=== PATIENT | female | born 1980 | race Caucasian/White ===

== ENCOUNTER → 2018-11-21 13:59 | Outpatient (CLI) | payer OTHER, SELFPAY ==
--- NOTE | 2018-11-21 14:01 | DI.RAD.S_ITS ---
PROCEDURE: XR CHEST 2V INDICATIONS: Cough TECHNIQUE: 2 views of the chest were acquired. COMPARISON: [facility], , CHEST 2 VIEW, 08/09/2010, 11:43. FINDINGS: Surgical changes and devices: None. Lungs and pleura: Lungs are clear. No pleural effusions or pneumothorax. Mediastinum: Mediastinal contours are normal. Heart size is normal. Bones and chest wall: No suspicious bony abnormalities. Soft tissues appear unremarkable. IMPRESSION: No acute cardiopulmonary pathology. Dictated by: Tomy Hodge M.D. on 11/21/2018 at 15:17 Approved by: Tomy Hodge M.D. on 11/21/2018 at 15:18
== END ==
PROVIDERS: PCP Family Medicine; Visit Provider Registered Nurse
DX: R05 Cough (principal)
CPT/HCPCS: 71046

== ENCOUNTER → 2018-12-06 08:13 | Outpatient (CLI) | payer OTHER, SELFPAY ==
[2018-12-06 09:50] LABS: Alanine Aminotransferase 39 IU/L (9-52); Albumin 4.4 g/dL (3.5-5.0); Albumin Globulin Ratio 1.5 (1.0-2.8); Alkaline Phosphatase 60 U/L (38-126); Aspartate Aminotransferase 32 IU/L (14-36); BUN Creatinine Ratio 12.5 (6-22); Bilirubin Total 0.2 mg/dL (0.2-1.3); Blood Urea Nitrogen 10 mg/dL (7-17); Calcium 9.4 mg/dL (8.4-10.2); Carbon Dioxide 24 mmol/L (22-32); Chloride 104 mmol/L (98-107); Cholesterol 153 mg/dL (140-199); Estimated Glomerular Filt Rate > 60.0 mL/min (>60); Glucose 90 mg/dL (70-100); HDL Cholesterol 56 mg/dL (40-60); HEMOLYSIS < 15 (0-50); LDL Cholesterol Calculated 75 mg/dL (<100); Potassium 4.3 mmol/L (3.4-5.1); Sodium 138 mmol/L (137-145); Total Protein 7.4 g/dL (6.3-8.2); Triglycerides 109 mg/dL (35-150)
[2018-12-06 10:24] LABS: Add Manual Diff / Slide Review NO; Basophils Absolute Auto 0 /uL (0-100); Basophils Percent Auto 0.6 % (0-2); Eosinophils Absolute Auto 100 /uL (0-450); Eosinophils Percent Auto 1.9 % (2-4); Hematocrit 41.5 % (36-46); Hemoglobin 14.2 g/dL (12.0-16.0); Lymphocytes Absolute Auto 1300 /uL (1100-4500); Lymphocytes Percent Auto 27.8 % (25-40); Mean Corpuscular HGB Conc 34.1 % (30-36); Mean Corpuscular Hemoglobin 30.5 PG (26-34); Mean Corpuscular Volume 89.3 fL (80-100); Monocytes Absolute Auto 400 /uL (0-900); Monocytes Percent Auto 8.6 % (3-14); Neutrophils Absolute Auto 2900 /uL (1500-7000); Neutrophils Percent Auto 61.1 % (50-75); Platelet Count 304 X10^3/uL (150-400); Red Blood Cell Count 4.65 X10^6/uL (4.0-5.2); Red Cell Distribution Width 13.9 % (11.6-14.8); White Blood Cell Count 4.8 X10^3/uL (4.5-11.0)
[2018-12-06 11:26] LABS: TSH w/ Reflex to FT4 2.68 uIU/mL (0.47-4.68)
== END ==
PROVIDERS: PCP Family Medicine; Visit Provider Family Medicine
DX: E78.2 Mixed hyperlipidemia (principal); Z13.6 Encounter for screening for cardiovascular disorders
CPT/HCPCS: 36415; 80053; 80061; 84443; 85025

== ENCOUNTER → 2019-04-14 11:41 | Outpatient (CLI) | payer OTHER, SELFPAY ==
[2019-04-14 14:13] LABS: HCG Quantitative /Beta subunit < 2.39 mIU/mL; Prolactin 4.9 ng/mL (3.0-18.6)
[2019-04-14 14:23] LABS: TSH w/ Reflex to FT4 1.75 uIU/mL (0.47-4.68)
[2019-04-14 15:16] LABS: Follicle Stimulating Hormone 3.96 mIU/mL
== END ==
PROVIDERS: PCP Family Medicine; Visit Provider Registered Nurse
DX: N92.6 Irregular menstruation, unspecified (principal)
CPT/HCPCS: 36415; 83001; 84146; 84443; 84702

== ENCOUNTER 2019-05-25 12:45 | Day surgery (SDC) | payer OTHER, SELFPAY ==
[2019-05-25 13:12] VITALS: BP 115/77; PULSE 94; RESP 16; TEMP 36; O2SAT 96; BMI 33.6
[2019-05-25] MEDS: SCOPOLAMINE 1 PATCH TOP (13:24)
[2019-05-25] MEDS: SODIUM CHLORIDE 0.9% 1,000 ML 200 ML IV (13:24)
--- NOTE | 2019-05-25 14:05 | PM.HP.1 ---
History of Present Illness History of Present Illness Date Patient Seen: 05/25/19 Time Patient Seen: 14:05 Chief complaint: [id number] Narrative: 38-year-old white female patient here for ease screening colonoscopy is asymptomatic only prior surgery was laparoscopy for a ovarian cystectomy years ago. Patient History Surgical History History of third molar tooth extraction Status post bunionectomy (08/15/17) Status post bunionectomy Status post laparoscopy Family History (Updated 11/25/14 @ 00:00 by Conversion Provider) Brother Alcoholism Depression Father Metastatic cancer to liver Metastatic cancer to brain Alcoholism Smoker Grandfather Stroke Brain aneurysm Grandmother Age: 89 Cervical cancer Skin carcinoma Keratoacanthoma Squamous cell skin cancer Mother Age: 67 IBS (irritable bowel syndrome) Anal cancer Osteopenia IC (interstitial cystitis) Grandfather Cancer Grandmother Diabetes mellitus Obesity Heart disease Hypertension High cholesterol Mental health problem Bipolar 1 disorder Hypomania Cardiomyopathy Congestive heart failure Chronic anemia Osteoporosis Social History household members: spouse Smoking Status: Former smoker alcohol intake: current substance use type: does not use Family & Social History Family History Brother Alcoholism Depression Father Metastatic cancer to liver Metastatic cancer to brain Alcoholism Smoker Grandfather Stroke Brain aneurysm Grandmother Age: 89 Cervical cancer Skin carcinoma Keratoacanthoma Squamous cell skin cancer Mother Age: 67 IBS (irritable bowel syndrome) Anal cancer Osteopenia IC (interstitial cystitis) Grandfather Cancer Grandmother Diabetes mellitus Obesity Heart disease Hypertension High cholesterol Mental health problem Bipolar 1 disorder Hypomania Cardiomyopathy Congestive heart failure Chronic anemia Osteoporosis Social History: household members spouse Tobacco & Substance use: Smoking Status Former smoker alcohol intake current Meds Home Medications and Allergies Home Medications Medication Instructions Recorded Confirmed Type sertraline [Zoloft] 100 mg PO QDAY #90 tab 09/01/18 04/14/19 Rx norethindrone-ethinyl estradiol 1 tab PO QDAY #84 tab 12/22/18 04/14/19 Rx 0.5 mg-35 mcg tablet fexofenadine 60 mg tablet 60 mg PO BID 04/14/19 04/14/19 History Allergies Allergy/AdvReac Type Severity Reaction Status Date / Time No Known Drug Allergies Allergy Verified 04/14/19 10:54 Review of Systems Review of Systems ROS Unobtainable: All systems reviewed & are unremarkable except as noted in HPI and below Exam Vital Signs (past 8 hours): - 05/25/19 13:12 Temperature 96.8 F L Pulse Rate 94 H Respiratory Rate 16 Blood Pressure 115/77 Pulse Oximetry 96 Oxygen Delivery Method Room Air Narrative Exam Narrative: Patient is alert and oriented with no complaints Lungs are clear with no rales or wheezes Heart regular rhythm no murmur Abdomen soft no organomegaly no tenderness no masses Rectal will be done at colonoscopy Assessment & Plan Assessment & Plan narrative: 38-year-old asymptomatic female here for her 1st screening colonoscopy she has no unanswered questions
[2019-05-25] MEDS: fentaNYL 250 MCG/5 ML INJ IV (14:31)
[2019-05-25] MEDS: MIDAZOLAM 5 MG/5 ML VIAL IV (14:31)
--- NOTE | 2019-05-25 14:33 | PM.OP.ENDO ---
Operative Date/Time/Diagnoses Date of procedure: 05/25/19 Time of procedure: 14:33 Pre-op diagnosis: Screening colonoscopy Post-op diagnosis: same Procedure & Clinicians Study performed: Colonoscopy to the cecum Same procedure as scheduled: Yes Surgeon: Jamey Cui Procedure Notes SCOAP/Timeout: This was done Procedure in detail: The patient was properly identified during surgical pause she was given a total of 5 mg of Versed and 200 micro g fentanyl which was very well tolerated and she remained comfortable throughout the procedure. The flexible fiberoptic colonoscope inserted transanally to the cecum. Patient is a normal colonoscopy. No tumors no polyps no ulcerations. No bleeding. No diverticulosis. Scope withdrawal time: 10 Sedation minutes: 20 Impression: Normal colonoscopy Post-procedure Recommendations: Colonscopy in 5 years Disposition: PACU
[2019-05-25 14:38] VITALS: BP 141/66; PULSE 85; RESP 24; TEMP 36.4; O2SAT 95
[2019-05-25 14:43] VITALS: BP 100/63; PULSE 94; RESP 14; O2SAT 95
[2019-05-25 14:46] VITALS: BP 103/70; PULSE 75; RESP 15; O2SAT 95
== END 2019-05-25 15:00 | disposition home or self-care (01) ==
PROVIDERS: Family Provider Family Medicine; PCP Family Medicine; Visit Provider Surgery
PROC: 0DJD8ZZ Inspection of Lower Intestinal Tract, Via Natural or Artificial Opening Endoscopic (ICD-10-PCS; CPT 45378; principal; 2019-05-25 14:30)
DX: Z12.11 Encounter for screening for malignant neoplasm of colon (principal)
CPT/HCPCS: 45378; 99152; J2250; J3010

== ENCOUNTER → 2020-02-22 08:00 | Outpatient (CLI) | payer OTHER, SELFPAY ==
[2020-02-22 09:29] LABS: Add Manual Diff / Slide Review NO; Basophils Absolute Auto 100 /uL (0-100); Basophils Percent Auto 1.1 % (0-2); Eosinophils Absolute Auto 100 /uL (0-450); Eosinophils Percent Auto 1.1 % (2-4); Hematocrit 41.9 % (36-46); Hemoglobin 14.3 g/dL (12.0-16.0); Lymphocytes Absolute Auto 1500 /uL (1100-4500); Lymphocytes Percent Auto 23.7 % (25-40); Mean Corpuscular HGB Conc 34.2 % (30-36); Mean Corpuscular Volume 87.7 fL (80-100); Monocytes Absolute Auto 500 /uL (0-900); Monocytes Percent Auto 7.2 % (3-14); Neutrophils Absolute Auto 4200 /uL (1500-7000); Neutrophils Percent Auto 66.9 % (50-75); Platelet Count 353 X10^3/uL (150-400); Red Blood Cell Count 4.77 X10^6/uL (4.0-5.2); Red Cell Distribution Width 14.1 % (11.6-14.8); White Blood Cell Count 6.3 X10^3/uL (4.5-11.0)
[2020-02-22 10:49] LABS: Alanine Aminotransferase 25 IU/L (<35); Albumin 4.4 g/dL (3.5-5.0); Albumin Globulin Ratio 1.4 (1.0-2.8); Alkaline Phosphatase 81 U/L (38-126); Aspartate Aminotransferase 31 IU/L (14-36); BUN Creatinine Ratio 17.9 (6-22); Bilirubin Total 0.6 mg/dL (0.2-1.3); Blood Urea Nitrogen 15 mg/dL (7-17); Calcium 9.8 mg/dL (8.4-10.2); Carbon Dioxide 24 mmol/L (22-32); Chloride 103 mmol/L (98-107); Cholesterol 239 mg/dL (140-199); Estimated Glomerular Filt Rate > 60.0 mL/min (>60); Globulin 3.1 g/dL (1.7-4.1); Glucose 86 mg/dL (70-100); HDL Cholesterol 95 mg/dL (40-60); HEMOLYSIS < 15 (0-50); LDL Cholesterol Calculated 126 mg/dL (<100); Potassium 4.4 mmol/L (3.4-5.1); Sodium 136 mmol/L (137-145); Total Protein 7.5 g/dL (6.3-8.2); Triglycerides 90 mg/dL (35-150)
[2020-02-22 11:10] LABS: TSH w/ Reflex to FT4 1.31 uIU/mL (0.47-4.68)
== END ==
PROVIDERS: Family Provider Family Medicine; PCP Family Medicine; Referring Provider Family Medicine; Visit Provider Family Medicine
DX: Z00.00 Encounter for general adult medical examination without abnormal findings (principal); E78.2 Mixed hyperlipidemia; Z13.6 Encounter for screening for cardiovascular disorders
CPT/HCPCS: 36415; 80053; 80061; 84443; 85025

== ENCOUNTER → 2020-03-16 11:28 | Outpatient (CLI) | payer OTHER, SELFPAY ==
--- NOTE | 2020-03-16 11:29 | DI.MG.S_ITS ---
BILATERAL DIGITAL SCREENING MAMMOGRAM 3D/2D WITH CAD: 03/16/2020 CLINICAL: Routine screening. Baseline exam. Family history of breast cancer. No prior exams were available for comparison. The tissue of both breasts is predominantly fatty. Current study was also evaluated with a Computer Aided Detection (CAD) system. No significant masses, calcifications, or other findings are seen in either breast. IMPRESSION: NEGATIVE There is no mammographic evidence of malignancy. A 1 year screening mammogram is recommended. This exam was interpreted at Station ID: [id number]. NOTE: For mammograms, a report in lay terms will be sent to the patient. Approximately 15% of breast malignancies will not be visualized mammographically. In the management of a palpable breast mass, a negative mammogram must not discourage biopsy of a clinically suspicious lesion. Electronically Signed By: Narendra Contreras M.D., jr/micaela:03/16/2020 11:52:00 letter sent: Normal Exam ACR BI-RADS Category 1: Negative [id number]
== END ==
PROVIDERS: Family Provider Family Medicine; PCP Family Medicine; Referring Provider Family Medicine; Visit Provider Family Medicine
DX: Z12.31 Encounter for screening mammogram for malignant neoplasm of breast (principal); Z80.3 Family history of malignant neoplasm of breast
CPT/HCPCS: 77063; 77067

== ENCOUNTER → 2021-02-21 07:07 | Outpatient (CLI) | payer OTHER, SELFPAY ==
[2021-02-21 08:13] LABS: Add Manual Diff / Slide Review NO; Basophils Absolute Auto 100 /uL (0-100); Eosinophils Absolute Auto 200 /uL (0-450); Eosinophils Percent Auto 2.9 % (2-4); Hematocrit 39.3 % (36-46); Hemoglobin 13.3 g/dL (12.0-16.0); Lymphocytes Absolute Auto 1600 /uL (1100-4500); Lymphocytes Percent Auto 29.1 % (25-40); Mean Corpuscular HGB Conc 33.9 % (30-36); Mean Corpuscular Hemoglobin 29.9 PG (26-34); Mean Corpuscular Volume 88.4 fL (80-100); Monocytes Absolute Auto 500 /uL (0-900); Monocytes Percent Auto 8.5 % (3-14); Neutrophils Absolute Auto 3200 /uL (1500-7000); Neutrophils Percent Auto 58.5 % (50-75); Platelet Count 325 X10^3/uL (150-400); Red Blood Cell Count 4.44 X10^6/uL (4.0-5.2); Red Cell Distribution Width 13.9 % (11.6-14.8); White Blood Cell Count 5.5 X10^3/uL (4.5-11.0)
[2021-02-21 08:37] LABS: Alanine Aminotransferase 23 IU/L (<35); Albumin Globulin Ratio 1.4 (1.0-2.8); Alkaline Phosphatase 52 U/L (38-126); Aspartate Aminotransferase 26 IU/L (14-36); BUN Creatinine Ratio 17.6 (6-22); Bilirubin Total 0.4 mg/dL (0.2-1.3); Blood Urea Nitrogen 15 mg/dL (7-17); Calcium 8.9 mg/dL (8.4-10.2); Carbon Dioxide 26 mmol/L (22-32); Chloride 105 mmol/L (98-107); Cholesterol 199 mg/dL (140-199); Estimated Glomerular Filt Rate > 60.0 mL/min (>60); Globulin 2.9 g/dL (1.7-4.1); Glucose 92 mg/dL (70-100); HDL Cholesterol 94 mg/dL (40-60); HEMOLYSIS < 15 (0-50); LDL Cholesterol Calculated 87 mg/dL (<100); Sodium 138 mmol/L (137-145); Total Protein 6.9 g/dL (6.3-8.2); Triglycerides 90 mg/dL (35-150)
[2021-02-21 09:05] LABS: TSH w/ Reflex to FT4 1.68 uIU/mL (0.47-4.68)
== END ==
PROVIDERS: Family Provider Family Medicine; PCP Family Medicine; Referring Provider Family Medicine; Visit Provider Family Medicine
DX: E78.2 Mixed hyperlipidemia (principal)
CPT/HCPCS: 36415; 80053; 80061; 84443; 85025

== ENCOUNTER → 2021-03-24 07:58 | Outpatient (CLI) | payer OTHER, SELFPAY ==
--- NOTE | 2021-03-24 | DI.MG.S_ITS ---
BILATERAL DIGITAL SCREENING MAMMOGRAM 3D/2D WITH CAD: 03/24/2021 CLINICAL: Routine screening. Comparison is made to exam dated: 03/16/2020 [facility]. There are scattered fibroglandular elements in both breasts. Current study was also evaluated with a Computer Aided Detection (CAD) system. No significant masses, calcifications, or other findings are seen in either breast. There has been no significant interval change. IMPRESSION: NEGATIVE There is no mammographic evidence of malignancy. A 1 year screening mammogram is recommended. This exam was interpreted at Station ID: [id number]. NOTE: For mammograms, a report in lay terms will be sent to the patient. Approximately 15% of breast malignancies will not be visualized mammographically. In the management of a palpable breast mass, a negative mammogram must not discourage biopsy of a clinically suspicious lesion. Electronically Signed By: Pj castellaon/micaela:03/24/2021 08:23:54 letter sent: Normal Exam ACR BI-RADS Category 1: Negative [id number]
== END ==
PROVIDERS: Family Provider Family Medicine; PCP Family Medicine; Referring Provider Family Medicine; Visit Provider Family Medicine
DX: Z12.31 Encounter for screening mammogram for malignant neoplasm of breast (principal)
CPT/HCPCS: 77063; 77067

== ENCOUNTER → 2022-03-26 12:41 | Outpatient (CLI) | payer OTHER, SELFPAY ==
--- NOTE | 2022-03-26 | DI.MG.S_ITS ---
BILATERAL DIGITAL SCREENING MAMMOGRAM 3D/2D WITH CAD: 03/26/2022 CLINICAL: Routine screening. Family history of breast cancer. Comparison is made to exams dated: 03/24/2021 mammogram and 03/16/2020 mammogram - [facility]. There are scattered fibroglandular elements in both breasts. Current study was also evaluated with a Computer Aided Detection (CAD) system. No significant masses, calcifications, or other findings are seen in either breast. There has been no significant interval change. IMPRESSION: NEGATIVE There is no mammographic evidence of malignancy. A 1 year screening mammogram is recommended. Based on the Tyrer Cuzick model (a risk assessment model) the patient's lifetime risk is 13.2% and her 10 year risk is 2.2%. According to the ACR, ACS, and NCCN guidelines, an annual breast MRI exam along with mammogram is recommended if the patient's lifetime risk is 20% or greater. This exam was interpreted at Station ID: [id number]. NOTE: For mammograms, a report in lay terms will be sent to the patient. Approximately 15% of breast malignancies will not be visualized mammographically. In the management of a palpable breast mass, a negative mammogram must not discourage biopsy of a clinically suspicious lesion. Electronically Signed By: Narendra Contreras M.D., jr/micaela:03/26/2022 14:40:02 letter sent: Normal Exam ACR BI-RADS Category 1: Negative 3341F
== END ==
PROVIDERS: Family Provider Family Medicine; PCP Family Medicine; Referring Provider Family Medicine; Visit Provider Family Medicine
DX: Z12.31 Encounter for screening mammogram for malignant neoplasm of breast (principal); Z80.3 Family history of malignant neoplasm of breast
CPT/HCPCS: 77063; 77067

== ENCOUNTER → 2022-04-06 06:45 | Outpatient (CLI) | payer OTHER, SELFPAY ==
[2022-04-06 08:15] LABS: Add Manual Diff / Slide Review NO; Basophils Absolute Auto 0 /uL (0-100); Basophils Percent Auto 0.3 % (0-2); Eosinophils Absolute Auto 100 /uL (0-450); Eosinophils Percent Auto 1.2 % (2-4); Hematocrit 40.6 % (36-46); Lymphocytes Absolute Auto 1500 /uL (1100-4500); Mean Corpuscular HGB Conc 34.5 % (30-36); Mean Corpuscular Hemoglobin 30.2 PG (26-34); Mean Corpuscular Volume 87.5 fL (80-100); Monocytes Absolute Auto 400 /uL (0-900); Neutrophils Absolute Auto 3900 /uL (1500-7000); Neutrophils Percent Auto 65.5 % (50-75); Platelet Count 264 X10^3/uL (150-400); Red Blood Cell Count 4.64 X10^6/uL (4.0-5.2); Red Cell Distribution Width 13.6 % (11.6-14.8); White Blood Cell Count 5.9 X10^3/uL (4.5-11.0)
[2022-04-06 08:35] LABS: Alanine Aminotransferase 32 IU/L (<35); Albumin Globulin Ratio 1.5 (1.0-2.8); Alkaline Phosphatase 58 U/L (38-126); Aspartate Aminotransferase 28 IU/L (14-36); BUN Creatinine Ratio 10.2 (6-22); Bilirubin Total 0.5 mg/dL (0.2-1.3); Blood Urea Nitrogen 9 mg/dL (7-17); Calcium 9.1 mg/dL (8.4-10.2); Carbon Dioxide 24 mmol/L (22-32); Chloride 103 mmol/L (98-107); Cholesterol 158 mg/dL (140-199); Estimated Glomerular Filt Rate > 60 mL/min (>60); Globulin 2.6 g/dL (1.7-4.1); Glucose 87 mg/dL (70-100); HDL Cholesterol 59 mg/dL (40-60); HEMOLYSIS < 15 (0-50); LDL Cholesterol Calculated 80 mg/dL (<100); Potassium 4.1 mmol/L (3.4-5.1); Sodium 137 mmol/L (137-145); Total Protein 6.6 g/dL (6.3-8.2); Triglycerides 94 mg/dL (35-150)
[2022-04-06 09:04] LABS: TSH w/ Reflex to FT4 1.89 uIU/mL (0.47-4.68)
== END ==
PROVIDERS: Family Provider Family Medicine; PCP Family Medicine; Referring Provider Family Medicine; Visit Provider Family Medicine
DX: E78.2 Mixed hyperlipidemia (principal)
CPT/HCPCS: 36415; 80053; 80061; 84443; 85025

== ENCOUNTER 2022-06-13 18:13 | Emergency (ER) | payer OTHER, SELFPAY ==
[2022-06-13] VITALS (14 sets, daily range): BP systolic 107–128; BP diastolic 55–78; PULSE 90–111; RESP 20; TEMP 36.8–38.8; O2SAT 94–99
[2022-06-13 19:44] LABS: Influenza A - CEPHEID Flu A NEGATIVE (NEGATIVE); Influenza B - CEPHEID Flu B NEGATIVE (NEGATIVE); Respiratory Syncytial Virus Negative (Negative)
[2022-06-13 19:46] LABS: COVID-19 CEPHEID 4-PLEX PCR POSITIVE (Negative)
--- NOTE | 2022-06-13 21:12 | ED.GENADULT ---
HPI - General Adult General Chief complaint: Fever Stated complaint: Fever of 103, Exposed to covid, but test - Time Seen by Provider: 06/13/22 21:04 Source: patient Mode of arrival: Ambulatory History of Present Illness HPI narrative: Patient is COVID vaccinated. However had exposure to a friend this past Saturday had COVID. She started started with fever body aches and now today has nausea and vomiting. No cough congestion, no shortness of breath. Has body aches and headache and neck pain. Denies , does not want a test. Has a company tanker truck driver. Related Data Home Medications Medication Instructions Recorded Confirmed fexofenadine 60 mg tablet (Taylor 60 mg PO BID 04/14/19 02/28/21 Allergy) Previous Rx's Medication Instructions Recorded norethindrone 0.5 mg-ethinyl 1 tab PO QDAY #84 tabs 04/09/22 estradiol 35 mcg tablet (Necon) sertraline 100 mg tablet See Rx Instructions .Route 04/09/22 .COMPLEX #90 tabs Allergies Allergy/AdvReac Type Severity Reaction Status Date / Time No Known Drug Allergies Allergy Verified 04/09/22 08:36 Review of Systems Review of Systems Narrative: GENERAL: Positive chills, fatigue, malaise, fever, sweats. HEENT: Denies sinus pain, ear pain, sore throat RESPIRATORY: Denies dyspnea, cough CARDIOVASCULAR: Denies chest pain, palpitations GASTROINTESTINAL: Positive nausea, vomiting, negative diarrhea and abdominal pain : Denies dysuria, frequency, hematuria MUSCULOSKELETAL: Positive muscle or bony pain SKIN: Denies rash, skin lesions NEUROLOGIC: Denies weakness, numbness ROS Unobtainable: All systems reviewed & are unremarkable except as noted in HPI and below Patient History Medical History Low back pain Surgical History Status post bunionectomy (08/15/17) Status post bunionectomy Status post laparoscopy Family History Brother Alcoholism Depression Father Metastatic cancer to liver Metastatic cancer to brain Alcoholism Smoker Grandfather Stroke Brain aneurysm Grandmother Age: 92 Cervical cancer Skin carcinoma Keratoacanthoma Squamous cell skin cancer Mother Age: 70 IBS (irritable bowel syndrome) Anal cancer Osteopenia IC (interstitial cystitis) Grandfather Cancer Grandmother Diabetes mellitus Obesity Heart disease Hypertension High cholesterol Mental health problem Bipolar 1 disorder Hypomania Cardiomyopathy Congestive heart failure Chronic anemia Osteoporosis Social History marital status: household members: spouse Smoking Status: Former smoker alcohol intake: current substance use type: does not use Smoking Status: Former smoker Exam Narrative Exam Narrative: GENERAL: in no distress, not toxic not dyspneic HEAD: Normocephalic. EYES: Pupils equal round No scleral icterus. No photophobia ENT: Mucous membranes moist. NECK: Trachea midline. Full active range of motion no meningeal signs CARDIOVASCULAR: Regular rate and rhythm without murmurs RESPIRATORY: Clear to auscultation. Breath sounds equal bilaterally. No wheezes, rales, or rhonchi. Speaking full sentences GASTROINTESTINAL: Abdomen soft, non-tender EXTREMITIES: No gross deformities. BACK: No flank tenderness. NEURO: AOx4. SKIN: Warm and dry PSYCH: Not anxious, is cooperative Initial Vital Signs Initial Vital Signs: Vital Signs Temperature 99.8 F H 06/13/22 18:27 Pulse Rate 111 H 06/13/22 18:27 Respiratory Rate 20 06/13/22 18:27 Blood Pressure 128/78 06/13/22 18:27 Pulse Oximetry 99 06/13/22 18:27 Oxygen Delivery Method 06/13/22 18:27 Course Course Course Narrative: No new issues during course of stay Orders Ordered: Discontinued Medications Acetaminophen (Acetaminophen 325 Mg Tablet) 975 mg PO NOW ONE Stop: 06/13/22 23:34 Last Admin: 06/13/22 23:36 Dose: Not Given Documented By: BARRY Diphenhydramine HCl (Diphenhydramine 50 Mg/Ml Vial) 12.5 mg IV NOW ONE Stop: 06/13/22 21:11 Last Admin: 06/13/22 21:33 Dose: 12.5 mg Documented By: BARRY Sodium Chloride (Normal Saline 0.9%) 1,000 mls @ 1,000 mls/hr IV BOLUS ONE Stop: 06/13/22 22:09 Last Infusion: 06/13/22 22:51 Dose: 0 mls/hr Documented By: Admin: 06/13/22 21:32 Dose: 1,000 mls/hr Documented By: BARRY Ketorolac Tromethamine (Ketorolac 30 Mg/Ml Vial) 15 mg IV NOW ONE Stop: 06/13/22 21:11 Last Admin: 06/13/22 21:32 Dose: 15 mg Documented By: BARRY Metoclopramide HCl (Metoclopramide 10 Mg/2 Ml Inj) 10 mg IV NOW ONE Stop: 06/13/22 21:11 Last Admin: 06/13/22 21:34 Dose: 10 mg Documented By: BARRY Reevaluation(s) Reevaluation #1: Reviewed results with patient, as well exam. Clear lung sounds. No x-ray indicated at this time. Clear lung sounds no complaints of cough or dyspnea. No blood work at this time. Vital signs otherwise reassuring. Not toxic Time: 21:15 Reevaluation #2: Patient feeling much better. She is smiling. Symptom-free from headache and neck pain. Body aches have improved as well. She desires discharge home. Return precautions reviewed with her. She has a company tanker truck driver. Time: 23:32 Vital Signs Vital signs: Vital Signs - 8 hr 06/13/22 21:45 06/13/22 21:30 06/13/22 21:30 Temperature 102 F H Pulse Rate 101 H Blood Pressure 115/58 L Pulse Oximetry 95 06/13/22 22:00 06/13/22 22:00 06/13/22 22:30 Temperature Pulse Rate 94 H Blood Pressure 118/62 118/62 Pulse Oximetry 96 06/13/22 22:30 06/13/22 23:00 06/13/22 23:00 Temperature Pulse Rate 91 H 90 Blood Pressure 115/57 L Pulse Oximetry 94 94 06/13/22 23:30 06/13/22 23:36 Temperature 98.2 F Pulse Rate 93 H Blood Pressure Pulse Oximetry 96 Medical Decision Making Differential Diagnosis Differential Diagnosis: COVID infection Lab Data Labs: Lab Results 06/13/22 Range/Units 18:47 SARS-CoV-2 (PCR) Positive H (Negative) Influenza A (RT-PCR) Flu a negative (NEGATIVE) Influenza B (RT-PCR) Flu b negative (NEGATIVE) RSV (PCR) Negative (Negative) MDM Narrative Medical decision making narrative: Appropriate for discharge home. No blood work or imaging indicated this time. No respiratory complaints. Feeling much better with conservative treatment. She has a company tanker truck driver. Return precautions reviewed with her. Not hypoxic or tachypneic. No respiratory complaints. Discharge Plan Departure Patient Disposition: Home Clinical Impression: COVID-19 Instructions: DI for Fever (Symptom) -- Adult, DI for COVID-19 (Suspected or Confirmed ) Activity Restrictions/Additional Instructions: See family doctor in a week for re-evaluation. You must quarantine 10 days from 1st day of your symptoms. Keep well hydrated. May continue ibuprofen or Tylenol for pain or fever. Return if worse if any questions or concerns Prescriptions: No Action sertraline 100 mg tablet See Rx Instructions .ROUTE .COMPLEX Qty: 90 3RF Dose Instruction: TAKE 1 TABLET BY MOUTH DAILY Rx Instructions: TAKE 1 TABLET BY MOUTH DAILY Necon 0.5/35 (28) 0.5-35 mg-mcg tablet 1 tab PO QDAY Qty: 84 4RF fexofenadine [Taylor Allergy] 60 mg tablet 60 mg PO BID Referrals: Narendra Hyatt MD [Primary Care Provider] - Visit Report Forms: Patient Portal/API
[2022-06-13] MEDS: KETOROLAC 30 MG/ML VIAL 15 MG IV (21:32)
[2022-06-13] MEDS: SODIUM CHLORIDE 0.9% 1,000 ML 1000 ML IV (21:32)
[2022-06-13] MEDS: diphenhydrAMINE 50 MG/ML VIAL 12.5 MG IV (21:33)
[2022-06-13] MEDS: METOCLOPRAMIDE 10 MG/2 ML INJ IV (21:34)
--- NOTE | 2022-06-13 21:47 | PC.NURSE ---
pt able to walk to the bathroom with minimal assistance did have to stop 1/2 way to catch her breath some dizziness noted
== END 2022-06-13 23:37 | disposition home or self-care (01) ==
PROVIDERS: Emergency Provider Emergency Medicine; Family Provider Family Medicine; PCP Family Medicine
DX: U07.1 COVID-19 (principal)
CPT/HCPCS: 0241U; 36415; 96361; 96374; 96375; 99284; J1200; J1885; J2765

== ENCOUNTER 2022-09-23 16:15 | Emergency (ER) | payer OTHER, SELFPAY ==
[2022-09-23 16:33] VITALS: BP 143/78; PULSE 90; RESP 28; TEMP 36.7; O2SAT 98; BMI 35.2
--- NOTE | 2022-09-23 16:35 | DI.RAD.S_ITS ---
PROCEDURE: XR CHEST 2V INDICATIONS: persistant cough TECHNIQUE: 2 views of the chest were acquired. COMPARISON: [facility], CR, XR CHEST 2V, 11/21/2018, 14:04. FINDINGS: Surgical changes and devices: None. Lungs and pleura: Lungs are clear. No pleural effusions or pneumothorax. Mediastinum: Mediastinal contours are normal. Heart size is normal. Bones and chest wall: No suspicious bony abnormalities. Soft tissues appear unremarkable. IMPRESSION: Unremarkable two view chest x-ray Approved by: Conrad Bunch M.D. on 09/23/2022 at 16:40
[2022-09-23] MEDS: BENZONATATE 100 MG CAPSULE PO (16:59)
[2022-09-23 17:21] LABS: Influenza A - CEPHEID Flu A NEGATIVE (NEGATIVE); Influenza B - CEPHEID Flu B NEGATIVE (NEGATIVE); Respiratory Syncytial Virus Negative (Negative)
--- NOTE | 2022-09-23 17:25 | ED_ITS ---
HPI - SOB/Dyspnea <Heather Walsh PA-C - Last Filed: 09/23/22 19:18> General Chief Complaint: Shortness of Breath/Dyspnea Stated Complaint: cough/trouble breathing covid/oct Time Seen by Provider: 09/23/22 16:55 Source: patient Mode of arrival: Ambulatory Limitations: no limitations History of Present Illness HPI Narrative: Patient is a 42-year-old female presenting for evaluation of cough symptoms and wheezing worsening over the last several days. She reports that she has felt short of breath and has had coughing since her bout of COVID last May. She notes that she was treated with antibiotics and albuterol inhaler in early July for bronchitis by her primary care provider. She says that she was diagnosed with flu over . She notes that she has not fully recovered since that time. She says that she feels out of breath, she has had wheezing with ocasional ear pain, sore throat from coughing, and general back pain from coughing. She says that her position does not seem to change her breathing ability. She denies swelling in her lower extremities. She has been treating these symptoms with albuterol and cold medicine. She has noted generalized de creased appetite since her bout of COVID, but no recent change. She has had increased sweating the last several days. She has noted a fever off and on with her last fever noted last . She says she quit smoking 13 years ago. She denies chronic conditions. She denies allergy to medication. She reports history of surgery on her feet but denies other surgeries. Her mom reports history of arteriosclerosis with an aunt dying at 56 from an MD. Denies nausea vomiting or abdominal pain. Her grandmother had skin cancer in her 40s. Her mother had anal cancer at 52. And her paternal grandmother had breast cancer in her late 40s. Related Data Home Medications Medication Instructions Recorded Confirmed fexofenadine 60 mg tablet (Taylor 60 mg PO BID 04/14/19 07/26/22 Allergy) Previous Rx's Medication Instructions Recorded norethindrone 0.5 mg-ethinyl 1 tab PO QDAY #84 tabs 04/09/22 estradiol 35 mcg tablet (Necon) sertraline 100 mg tablet See Rx Instructions .Route 04/09/22 .COMPLEX #90 tabs doxycycline hyclate 100 mg capsule 100 mg PO DAILY #20 caps 07/26/22 albuterol sulfate 90 mcg/actuation 2 puff inhalation Q4-6H PRN 09/14/22 aerosol inhaler shortness of breath or wheezing #6.7 grams fluticasone furoate 100 1 inh inhalation Q24H Dypsnea #14 09/23/22 mcg/actuation blister powder for ea inhalation Allergies Allergy/AdvReac Type Severity Reaction Status Date / Time No Known Drug Allergies Allergy Verified 09/23/22 16:40 Review of Systems <Heather Walsh PA-C - Last Filed: 09/23/22 19:18> Review of Systems Narrative: per HPI Patient History <Heather Walsh PA-C - Last Filed: 09/23/22 19:18> Medical History Low back pain Surgical History Status post bunionectomy (08/15/17) Status post bunionectomy Status post laparoscopy Family History Brother Alcoholism Depression Father Metastatic cancer to liver Metastatic cancer to brain Alcoholism Smoker Grandfather Stroke Brain aneurysm Grandmother Age: 92 Cervical cancer Skin carcinoma Keratoacanthoma Squamous cell skin cancer Mother Age: 70 IBS (irritable bowel syndrome) Anal cancer Osteopenia IC (interstitial cystitis) Grandfather Cancer Grandmother Diabetes mellitus Obesity Heart disease Hypertension High cholesterol Mental health problem Bipolar 1 disorder Hypomania Cardiomyopathy Congestive heart failure Chronic anemia Osteoporosis Social History marital status: household members: spouse Smoking Status: Former smoker alcohol intake: current substance use type: does not use Smoking Status: Former smoker Exam <Heather Walsh PA-C - Last Filed: 09/23/22 19:18> Narrative Exam Narrative: GENERAL: 42 year old patient appears stated age. Well-developed patient, in mild distress. Coughig throughout exam. HEAD: Atraumatic. Normocephalic. EYES: Pupils equal round and reactive. No scleral icterus. No injection or drainage. ENT: Nose with clear rhinorrhea, Throat mild erythema, No tonsillar hypertrophy or exudate. Airway patent. NECK: Trachea midline. Non tender CARDIOVASCULAR: Regular rate and rhythm without murmurs, gallops, or rubs. RESPIRATORY: Breath sounds equal bilaterally. Expiratory wheezes present, No rales, or rhonchi. EXTREMITIES: No edema of lower extremities BACK: Nontender. NEURO: AOx3. SKIN: No rash or erythema of visible areas Initial Vital Signs Initial Vital Signs: Vital Signs Temperature 98.1 F 09/23/22 16:33 Pulse Rate 90 09/23/22 16:33 Respiratory Rate 28 H 09/23/22 16:33 Blood Pressure 143/78 H 09/23/22 16:33 Pulse Oximetry 98 09/23/22 16:33 Oxygen Delivery Method 09/23/22 16:33 <Isaura Morgan MD - Last Filed: 09/24/22 01:46> Initial Vital Signs Initial Vital Signs: Vital Signs Temperature 98.1 F 09/23/22 16:33 Pulse Rate 90 09/23/22 16:33 Respiratory Rate 28 H 09/23/22 16:33 Blood Pressure 143/78 H 09/23/22 16:33 Pulse Oximetry 98 09/23/22 16:33 Oxygen Delivery Method 09/23/22 16:33 Course <Heather Walsh PA-C - Last Filed: 09/23/22 19:18> Orders Ordered: ED Orders 09/23/22 17:54 RT Consult Eval and Treat NOW Discontinued Medications Albuterol/Ipratropium (Albuterol/Ipratropium 3 Ml Ampul) 3 ml INH NOW ONE Stop: 09/23/22 18:01 Last Admin: 09/23/22 18:04 Dose: 3 ml Documented By: DANTE Benzonatate (Benzonatate 100 Mg Capsule) 100 mg PO NOW ONE Stop: 09/23/22 16:56 Last Admin: 09/23/22 16:59 Dose: 100 mg Documented By: CRISTINA Budesonide (Budesonide 0.5 Mg/2 Ml Neb) 0.5 mg INH NOW ONE Stop: 09/23/22 18:00 Last Admin: 09/23/22 18:04 Dose: 0.5 mg Documented By: DANTE Reevaluation(s) Reevaluation #1: Patient appears relieved after treatment with duoneb. She says that her breathin g is easier. Vital Signs Vital signs: Vital Signs - 8 hr 09/23/22 19:19 Pulse Rate 92 H Respiratory Rate 14 Blood Pressure 143/78 H Pulse Oximetry 98 Oxygen Delivery Method Room Air <Isaura Morgan MD - Last Filed: 09/24/22 01:46> Orders Ordered: ED Orders 09/23/22 17:54 RT Consult Eval and Treat NOW Discontinued Medications Albuterol/Ipratropium (Albuterol/Ipratropium 3 Ml Ampul) 3 ml INH NOW ONE Stop: 09/23/22 18:01 Last Admin: 09/23/22 18:04 Dose: 3 ml Documented By: DANTE Benzonatate (Benzonatate 100 Mg Capsule) 100 mg PO NOW ONE Stop: 09/23/22 16:56 Last Admin: 09/23/22 16:59 Dose: 100 mg Documented By: CRISTINA Budesonide (Budesonide 0.5 Mg/2 Ml Neb) 0.5 mg INH NOW ONE Stop: 09/23/22 18:00 Last Admin: 09/23/22 18:04 Dose: 0.5 mg Documented By: DANTE Vital Signs Vital signs: Vital Signs - 8 hr 09/23/22 19:19 Pulse Rate 92 H Respiratory Rate 14 Blood Pressure 143/78 H Pulse Oximetry 98 Oxygen Delivery Method Room Air MDM - SOB/Dyspnea <Heather Walsh PA-C - Last Filed: 09/23/22 19:18> Lab Data Labs: Lab Results 09/23/22 Range/Units 16:30 SARS-CoV-2 (PCR) Negative (Negative) Influenza A (RT-PCR) Flu a negative (NEGATIVE) Influenza B (RT-PCR) Flu b negative (NEGATIVE) RSV (PCR) Negative (Negative) MDM Narrative Medical decision making narrative: Patient is a 42-year-old female presenting for shortness of breath and coughing times several weeks. She presents to the ER with persistent coughing, stable vital signs, and increased sweating for the last several days. She believes these symptoms are lingering from COVID infection in May and influenza infection over . She presents to the ER because she feels her symptoms are getting worse. We have gotten a chest x-ray which radiologist reads showed no infiltrates and no fluid accumulation. We are also doing a respiratory panel to rule out COVID, flu a and b, and RSV: all results were negative. I have called Respiratory therapy to consult. Discussion with RT recommends duoneb with pulmacort and PFT at PCP follow up. She is to be discharged home with a short term fluticasone inhaler. She defers ciara daniel. I recommend she follow up with her primary care this next week. I also recommend she get a PFT given her chronic cough and dyspnea. I discussed with her an incidentally noted pigmented mole on the posterior aspect of her right ear addie.l I encouraged her to follow-up with her primary care provider to monitor this. Differentials include: bronchitis, pneumonia, COVID, flu A and B, RSV. Respiratory testng was negative for COVID, Flu, and RSV. CXR ruled out pneumonia. <Isaura Morgan MD - Last Filed: 09/24/22 01:46> Lab Data Labs: Lab Results 09/23/22 Range/Units 16:30 SARS-CoV-2 (PCR) Negative (Negative) Influenza A (RT-PCR) Flu a negative (NEGATIVE) Influenza B (RT-PCR) Flu b negative (NEGATIVE) RSV (PCR) Negative (Negative) Discharge Plan Departure Patient Disposition: Home Clinical Impression: Shortness of Breath, Bronchitis Instructions: DI for Acute Bronchitis Activity Restrictions/Additional Instructions: You were evaluated today in the ED for persistent coughing, new onset sweating and difficulty breathing. We checked a chest x-ray which showed no abnormalities, and ran a respiratory panel to rule out COVID-19, influenza a and B, and RSV. All of which were negative You were evaluated by respiratory therapy due to your wheezes and we performed a duoneb with pulmacort to help reduce inflammation. This intervention seemed to improve your condition overall. We will send you home with a short term prescription for fluticasone oral inhaler. We have talked about precautions to rinse mouth out after use to reduce risk of oral candidiasis. Please follow-up with primary care doctor next week for continued monitoring of your condition. A PFT is also recommended to evaluate pulmonary condition. Incidentally, we discussed a pigmented mole on the posterior aspect of your right ear canal which you should follow up with PCP about. Prescriptions: New fluticasone furoate 100 mcg/actuation blister with device 1 inh inhalation Q24H Qty: 14 0RF No Action doxycycline hyclate 100 mg capsule 100 mg PO DAILY Qty: 20 0RF sertraline 100 mg tablet See Rx Instructions .ROUTE .COMPLEX Qty: 90 3RF Dose Instruction: TAKE 1 TABLET BY MOUTH DAILY Rx Instructions: TAKE 1 TABLET BY MOUTH DAILY Necon 0.5/35 (28) 0.5-35 mg-mcg tablet 1 tab PO QDAY Qty: 84 4RF albuterol sulfate 90 mcg/actuation HFA aerosol inhaler 2 puff inhalation Q4-6H PRN (Reason: shortness of breath or wheezing) Qty: 6.7 1RF fexofenadine [Taylor Allergy] 60 mg tablet 60 mg PO BID Referrals: Narendra Hyatt MD [Primary Care Provider] - Stand Alone Forms: Patient Portal/API <Isaura Morgan MD - Last Filed: 09/24/22 01:46> Cosign ED Attending Cosignature Attestation: I was immediately available in the department for consultation throughout this patient's visit. I agree with documentation as above. Isaura Morgan MD
[2022-09-23 17:27] LABS: COVID-19 CEPHEID 4-PLEX PCR Negative (Negative)
[2022-09-23] MEDS: ALBUTEROL/IPRATROPIUM 3 ML AMPUL INH (18:04)
[2022-09-23] MEDS: BUDESONIDE 0.5 MG/2 ML NEB INH (18:04)
[2022-09-23 19:19] VITALS: BP 143/78; PULSE 92; RESP 14; O2SAT 98
== END 2022-09-23 19:20 | disposition home or self-care (01) ==
PROVIDERS: Emergency Medicine; Emergency Provider Physician Assistant; Family Provider Family Medicine; PCP Family Medicine
DX: J40 Bronchitis, not specified as acute or chronic (principal); R06.02 Shortness of breath; Z20.822 Contact with and (suspected) exposure to COVID-19; Z86.16 Personal history of COVID-19
CPT/HCPCS: 0241U; 71046; 99283

== ENCOUNTER → 2023-05-20 07:29 | Outpatient (CLI) | payer OTHER, SELFPAY ==
--- NOTE | 2023-05-20 | DI.MG.S_ITS ---
BILATERAL DIGITAL SCREENING MAMMOGRAM 3D/2D WITH CAD: 05/20/2023 CLINICAL: Routine screening. Family history of breast cancer. Comparison is made to exams dated: 03/26/2022 mammogram, 03/24/2021 mammogram, and 03/16/2020 mammogram - [facility]. There are scattered areas of fibroglandular density in both breasts (category b / 25%-50% glandular tissue). Current study was also evaluated with a Computer Aided Detection (CAD) system. No significant masses, calcifications, or other findings are seen in either breast. There has been no significant interval change. IMPRESSION: NEGATIVE There is no mammographic evidence of malignancy. A 1 year screening mammogram is recommended. Based on the Tyrer Cuzick model (a risk assessment model) the patient's lifetime risk is 13.2% and her 10 year risk is 2.3%. According to the ACR, ACS, and NCCN guidelines, an annual breast MRI exam along with mammogram is recommended if the patient's lifetime risk is 20% or greater. This exam was interpreted at Station ID: [id number]. NOTE: For mammograms, a report in lay terms will be sent to the patient. Approximately 15% of breast malignancies will not be visualized mammographically. In the management of a palpable breast mass, a negative mammogram must not discourage biopsy of a clinically suspicious lesion. Electronically Signed By: Wing steward/micaela:05/20/2023 09:30:40 letter sent: Normal Exam ACR BI-RADS Category 1: Negative [id number]
== END ==
PROVIDERS: Family Provider Family Medicine; PCP Family Medicine; Referring Provider Family Medicine; Visit Provider Family Medicine
DX: Z12.31 Encounter for screening mammogram for malignant neoplasm of breast (principal); Z80.3 Family history of malignant neoplasm of breast
CPT/HCPCS: 77063; 77067

== ENCOUNTER → 2023-05-24 06:54 | Outpatient (CLI) | payer OTHER, SELFPAY ==
[2023-05-24 08:31] LABS: Add Manual Diff / Slide Review NO; Basophils Absolute Auto 100 /uL (0-100); Basophils Percent Auto 0.8 % (0-2); Eosinophils Absolute Auto 400 /uL (0-450); Eosinophils Percent Auto 4.3 % (2-4); Hematocrit 41.9 % (36-46); Hemoglobin 14.3 g/dL (12.0-16.0); Lymphocytes Absolute Auto 1800 /uL (1100-4500); Lymphocytes Percent Auto 21.2 % (25-40); Monocytes Absolute Auto 700 /uL (0-900); Monocytes Percent Auto 8.3 % (3-14); Neutrophils Absolute Auto 5500 /uL (1500-7000); Neutrophils Percent Auto 65.4 % (50-75); Platelet Count 400 X10^3/uL (150-400); Red Blood Cell Count 4.76 X10^6/uL (4.0-5.2); Red Cell Distribution Width 14.3 % (11.6-14.8); White Blood Cell Count 8.4 X10^3/uL (4.5-11.0)
[2023-05-24 09:04] LABS: Alanine Aminotransferase 21 IU/L (<35); Albumin Globulin Ratio 1.3 (1.0-2.8); Alkaline Phosphatase 74 U/L (38-126); Aspartate Aminotransferase 22 IU/L (14-36); BUN Creatinine Ratio 22.9 (6-22); Bilirubin Total 0.2 mg/dL (0.2-1.3); Blood Urea Nitrogen 19 mg/dL (7-17); Calcium 9.8 mg/dL (8.4-10.2); Carbon Dioxide 25 mmol/L (22-32); Chloride 105 mmol/L (98-107); Cholesterol 266 mg/dL (140-199); Estimated Glomerular Filt Rate > 60 mL/min (>60); Glucose 90 mg/dL (70-100); HDL Cholesterol 89 mg/dL (40-60); HEMOLYSIS < 15 (0-50); LDL Cholesterol Calculated 152 mg/dL (<100); Potassium 4.2 mmol/L (3.4-5.1); Sodium 138 mmol/L (137-145); Triglycerides 127 mg/dL (35-150)
== END ==
PROVIDERS: Family Provider Family Medicine; PCP Family Medicine; Referring Provider Family Medicine; Visit Provider Family Medicine
DX: E78.2 Mixed hyperlipidemia (principal)
CPT/HCPCS: 36415; 80053; 80061; 84443; 85025

== ENCOUNTER → 2024-05-22 14:23 | Outpatient (CLI) | payer OTHER, SELFPAY ==
--- NOTE | 2024-05-22 14:23 | DI.MG.S_ITS ---
BILATERAL DIGITAL SCREENING MAMMOGRAM 3D/2D WITH CAD: 05/22/2024 CLINICAL: Routine screening. Family history of breast cancer. Comparison is made to exams dated: 05/20/2023 mammogram, 03/26/2022 mammogram, and 03/24/2021 mammogram - [facility]. There are scattered areas of fibroglandular density (category b / 25%-50% glandular tissue). Current study was also evaluated with a Computer Aided Detection (CAD) system. No significant masses, calcifications, or other findings are seen in either breast. There has been no significant interval change. IMPRESSION: NEGATIVE There is no mammographic evidence of malignancy. A 1 year screening mammogram is recommended. Based on the Tyrer Cuzick model (a risk assessment model) the patient's lifetime risk is 11.2% and her 10 year risk is 2.1%. According to the ACR, ACS, and NCCN guidelines, an annual breast MRI exam along with mammogram is recommended if the patient's lifetime risk is 20% or greater. This exam was interpreted at Station ID: [id number]. NOTE: For mammograms, a report in lay terms will be sent to the patient. Approximately 15% of breast malignancies will not be visualized mammographically. In the management of a palpable breast mass, a negative mammogram must not discourage biopsy of a clinically suspicious lesion. Electronically Signed By: Pj castellano/micaela:05/22/2024 16:31:25 letter sent: Normal Exam ACR BI-RADS Category 1: Negative
== END ==
PROVIDERS: Family Provider Family Medicine; PCP Family Medicine; Referring Provider Family Medicine; Visit Provider Family Medicine
DX: Z12.31 Encounter for screening mammogram for malignant neoplasm of breast (principal); Z80.3 Family history of malignant neoplasm of breast
CPT/HCPCS: 77063; 77067

== ENCOUNTER → 2024-07-15 07:17 | Outpatient (CLI) | payer OTHER, SELFPAY ==
[2024-07-15 08:08] LABS: Add Manual Diff / Slide Review NO; Basophils Absolute Auto 100 /uL (0-100); Basophils Percent Auto 1.2 % (0-2); Eosinophils Absolute Auto 100 /uL (0-450); Eosinophils Percent Auto 1.9 % (2-4); Hematocrit 40.5 % (36-46); Hemoglobin 13.7 g/dL (12.0-16.0); Lymphocytes Absolute Auto 1600 /uL (1100-4500); Lymphocytes Percent Auto 25.8 % (25-40); Mean Corpuscular HGB Conc 33.9 % (30-36); Mean Corpuscular Hemoglobin 29.5 PG (26-34); Monocytes Absolute Auto 400 /uL (0-900); Monocytes Percent Auto 6.5 % (3-14); Neutrophils Absolute Auto 4100 /uL (1500-7000); Neutrophils Percent Auto 64.6 % (50-75); Platelet Count 377 X10^3/uL (150-400); Red Blood Cell Count 4.65 X10^6/uL (4.0-5.2); Red Cell Distribution Width 13.5 % (11.6-14.8); White Blood Cell Count 6.4 X10^3/uL (4.5-11.0)
[2024-07-15 08:31] LABS: Alanine Aminotransferase 21 IU/L (<35); Albumin 3.9 g/dL (3.5-5.0); Albumin Globulin Ratio 1.4 (1.0-2.8); Alkaline Phosphatase 70 U/L (38-126); Aspartate Aminotransferase 22 IU/L (14-36); BUN Creatinine Ratio 14.3 (6-22); Bilirubin Total 0.4 mg/dL (0.2-1.3); Blood Urea Nitrogen 13 mg/dL (7-17); Calcium 9.4 mg/dL (8.4-10.2); Carbon Dioxide 24 mmol/L (22-32); Chloride 105 mmol/L (98-107); Cholesterol 240 mg/dL (140-199); Estimated Glomerular Filt Rate > 60 mL/min (>60); Globulin 2.7 g/dL (1.7-4.1); Glucose 85 mg/dL (70-100); HDL Cholesterol 78 mg/dL (40-60); HEMOLYSIS < 15 (0-50); LDL Cholesterol Calculated 126 mg/dL (<100); Sodium 137 mmol/L (137-145); Total Protein 6.6 g/dL (6.3-8.2); Triglycerides 182 mg/dL (35-150)
[2024-07-15 08:37] LABS: Potassium 4.2 mmol/L (3.4-5.1)
[2024-07-15 08:59] LABS: TSH w/ Reflex to FT4 1.92 uIU/mL (0.47-4.68)
== END ==
PROVIDERS: Family Provider Family Medicine; PCP Family Medicine; Referring Provider Family Medicine; Visit Provider Family Medicine
DX: Z00.00 Encounter for general adult medical examination without abnormal findings (principal); N95.1 Menopausal and female climacteric states; E78.2 Mixed hyperlipidemia
CPT/HCPCS: 36415; 80053; 80061; 84443; 85025

== ENCOUNTER 2024-09-08 07:41 | Day surgery (SDC) | payer OTHER, SELFPAY ==
[2024-09-08] VITALS (7 sets, daily range): BP systolic 80–100; BP diastolic 43–67; PULSE 79–90; RESP 14–22; TEMP 36.2–36.6; O2SAT 93–96
--- NOTE | 2024-09-08 | PATH_ITS ---
[facility] Accession Number: [id number] No. of containers..01 Tissue . 01 Material submitted: . colon - ASCENDING COLON POLYP . 01 Diagnosis: ASCENDING COLON POLYP: Sessile serrated adenoma. [facility] 09/10/2024 1130 Local . 01 Electronically signed: . Lorena Dubon MD, Pathologist NPI- [id number] . 01 Gross description: . Received in formalin with two patient identifiers and ascending colon polyp, and consists of two houston-brown irregular soft tissue fragments measuring 0.4 and 0.6 cm in greatest dimension. The specimen are entirely submitted in cassette A1. ([id number]) /MRV 09/09/20242010 Local . 01 Pathologist provided ICD-10: D12.2 . 01 CPT . 171237 Specimen Comment: A courtesy copy of this report has been sent to [facility] Pathology Performed at: [address] [address], [place], [place] [id number] MD Pako Aguirre MD Phone: [phone]
[2024-09-08] MEDS: SODIUM CHLORIDE 0.9% 1,000 ML 84 ML IV (08:10)
[2024-09-08] MEDS: SCOPOLAMINE 1 PATCH TOP (08:12)
--- NOTE | 2024-09-08 08:34 | PM.HP.IH.1 ---
History of Present Illness History of Present Illness Date Patient Seen: 09/08/24 Time Patient Seen: 08:34 Chief complaint: Colonoscopy Narrative: 44-year-old white female presents for screening colonoscopy. She had a previous colonoscopy 5 years ago. Her father of colon cancer around age 51. No changes in health. [facility] Medical History (Updated 09/08/24 @ 08:35 by Khoa Parmar MD) Colon cancer screening (09/08/24) Low back pain Surgical History Status post bunionectomy Status post bunionectomy (08/15/17) Status post laparoscopy Family History Brother Alcoholism Depression Father Metastatic cancer to liver Metastatic cancer to brain Alcoholism Smoker Grandfather Stroke Brain aneurysm Grandmother Age: 94 Cervical cancer Skin carcinoma Keratoacanthoma Squamous cell skin cancer Mother Age: 72 IBS (irritable bowel syndrome) Anal cancer Osteopenia IC (interstitial cystitis) Grandfather Cancer Grandmother Diabetes mellitus Obesity Heart disease Hypertension High cholesterol Mental health problem Bipolar 1 disorder Hypomania Cardiomyopathy Congestive heart failure Chronic anemia Osteoporosis Social History marital status: number of children: 2 household members: spouse lives independently: Yes caregiver/support person: No housing: house pets and animals: Yes education level: college occupational status: employed current occupational exposures/hazards: No Previous occupational history: Same work for 22 years chris/yarsani: Scientologist special chris needs: No travel history: recent sexual history: Same partner - - for 19 years leisure activities: music, hunting, fishing and reading seatbelt use: always helmet use: No (N/A) water heater temp set < 120 deg: Yes working smoke detector in home: Yes fire extinguisher in home: Yes carbon monox detector in home: Yes firearms in home: Yes firearms unloaded and locked: Yes do you feel safe at home: Yes Smoking Status: Former smoker Tobacco: How many years used: 7 second hand exposure: Yes alcohol intake: current substance use type: does not use during the past year weight has: decreased > 10 lbs well-balanced diet: daily or most days daily servings fruits/ve-4 caffeine: Yes eating out: rarely or never Type(s) of exercise: walking, regular exercise and resistance training frequency: 3-4 times per week duration: 30-45 minutes/day Meds Home Medications and Allergies Home Medications Medication Instructions Recorded Confirmed Type norethindrone 0.5 mg-ethinyl 1 tab PO DAILY #84 tabs 07/06/24 09/08/24 Rx estradiol 35 mcg tablet (Leeann (28)) sertraline 100 mg tablet 100 mg PO DAILY #90 tabs 07/06/24 09/08/24 Rx triamcinolone acetonide 0.1 % See Rx Instructions topical BID 07/20/24 07/20/24 Rx topical cream #30 grams sodium,potassium,mag sulfates 17.5 See Rx Instructions PO .COMPLEX 08/20/24 Rx gram-3.13 gram-1.6 gram oral soln #354 mL (Suprep Bowel Prep Kit) naltrexone 4.5 mg capsule 4.5 mg PO DAILY 09/08/24 09/08/24 History semaglutide (weight loss) 0.25 0.35 mg SUBCUT QWEEK 09/08/24 09/08/24 History mg/0.5 mL subcutaneous pen injector Allergies Allergy/AdvReac Type Severity Reaction Status Date / Time No Known Drug Allergies Allergy Verified 09/08/24 07:58 Review of Systems Review of Systems ROS: Yes All systems reviewed with the patient and are negative except as otherwise documented Exam Vital Signs (past 8 hours): - 09/08/24 08:05 Temperature 97.1 F L Pulse Rate 79 Respiratory Rate 14 Blood Pressure 99/67 Pulse Oximetry 96 Oxygen Delivery Method Room Air Oxygen Delivery Method Room Air Narrative Exam Narrative: Gen: NAD, sitting comfortably in bed, appears well HEENT: Sclera are anicteric, head is normocephalic and atraumatic, trachea is midline. CV: RRR, no JVD Resp: clear to auscultation bilaterally, equal chest wall movement bilaterally Abd: soft, nontender, normoactive bowel sounds Ext: no edema, full range of motion Neuro: Cranial nerves II-XII grossly intact, no focal deficits Skin: No erythema or ecchymosis Assessment & Plan Assessment and plan (1) Colon cancer screening: Status: Acute Assessment & Plan narrative: Patient presents for colonoscopy Risks, benefits, alternatives to colonoscopy explained, including but not limited to bowel perforation or other serious complication requiring surgery at less than 1 in 5000 colonoscopies, abdominal pain, cramping or bleeding and less than 1% of colonoscopies, and the chances that we find a diagnosis that would require further intervention of about 2%. Patient agrees to proceed. Time-Based Coding :: [TOTAL MINUTES] spent with patient and on the chart (including review of chart, obtaining history, exam, reviewing outside data, placing orders, documenting exam and treatment plan, and counseling patient) on [DATE]. PROFEE Milk Tanker Driver Document charge(s): No
--- NOTE | 2024-09-08 08:57 | P.OP.COLON_ITS ---
Operative Date/Time/Diagnoses Date of procedure: 09/08/24 Time of procedure: 08:57 Pre-op diagnosis: Colon screening Post-op diagnosis: other (Ascending colon polyp) Procedure & Clinicians Study performed: Colonoscopy with cold snare polypectomy Same procedure as scheduled: Yes Indications: Colon screening Surgeon: Khoa Parmar Procedure Notes SCOAP/Timeout: Perform Procedure in detail: Time-out was performed. Mac was induced. Patient was placed in left lateral decubitus position. The perineum was inspected without any gross abnormality. Lubricated pediatric colonoscope was inserted and advanced to the cecum. The terminal ileum was intubated. The colonoscope was withdrawn slowly inspecting the circumference of the colon. An approximately 8 mm polyp of the ascending colon was noted, removed completely with cold snare polypectomy and retrieved. Sigmoid diverticulosis was noted. Very small polyps may have been missed, prep quality was adequate. Retroflexed view of the rectum showed small, non pro lapsed nonbleeding internal hemorrhoids. The scope was withdrawn the patient was taken to PACU in good condition. Scope withdrawal time: 10 Sedation minutes: 16 Findings: divertiulosis and polyp(s) Specimen(s): other (Ascending colon polyp) Complications: none Impression: Ascending colon polyp Post-procedure Recommendations: Colonoscopy in 5 years (Next colonoscopy should be in 5-7 years) Follow up: as needed Disposition: PACU
== END 2024-09-08 09:25 | disposition home or self-care (01) ==
PROVIDERS: Family Provider Family Medicine; PCP Family Medicine; Referring Provider Surgery; Visit Provider Surgery
PROC: 0DJD8ZZ Inspection of Lower Intestinal Tract, Via Natural or Artificial Opening Endoscopic (ICD-10-PCS; CPT 45378; principal; 2024-09-08 08:45)
DX: Z12.11 Encounter for screening for malignant neoplasm of colon (principal); D12.2 Benign neoplasm of ascending colon; K57.30 Diverticulosis of large intestine without perforation or abscess without bleeding; K64.8 Other hemorrhoids; Z80.0 Family history of malignant neoplasm of digestive organs
CPT/HCPCS: 45385; J2405; J2704

== ENCOUNTER → 2025-01-05 07:53 | Outpatient (CLI) | payer OTHER, SELFPAY ==
--- NOTE | 2025-01-05 07:54 | DI.RAD.S_ITS ---
PROCEDURE: XR CHEST 2V INDICATIONS: Cough TECHNIQUE: 2 views of the chest were acquired. COMPARISON: [facility], CR, XR CHEST 2V, 09/23/2022, 16:38. FINDINGS: Heart, mediastinum and pulmonary vascular: Heart is normal in size and configuration. Mediastinum is unremarkable. Pulmonary vascular is normal. Lungs: Small infiltrate posterior medial right lower lobe has developed Pleural spaces: Tiny bilateral pleural effusions blunt the posterior costophrenic angles Bones and soft tissues: Normal IMPRESSION: Small bilateral pleural effusions and small infiltrate posterior medial right lower lobe. Suspect pneumonia Dictated by: Chidi Davis M.D. on 01/05/2025 at 10:40 Approved by: Chdii Davis M.D. on 01/05/2025 at 10:43
== END ==
PROVIDERS: Family Provider Family Medicine; PCP Family Medicine; Referring Provider Nurse Practitioner Family; Visit Provider Nurse Practitioner Family
DX: R05.9 Cough, unspecified (principal); J90 Pleural effusion, not elsewhere classified
CPT/HCPCS: 71046

== ENCOUNTER → 2025-05-28 15:57 | Outpatient (CLI) | payer OTHER, SELFPAY ==
--- NOTE | 2025-05-28 15:57 | DI.MG.S_ITS ---
MM screening mammo BI: 05/28/2025. BI-RADS: 1 CLINICAL: 44-year old female for bilateral screening mammogram. Tyrer-Cuzick lifetime risk of 14.2%. No personal or first-degree family history of breast cancer. Current reported family history of breast cancer: paternal grandmother. PRIOR EXAMS 05/22/2024, 05/20/2023, 03/26/2022, 03/24/2021. MAMMOGRAPHY TECHNIQUE: 2D and 3D (tomosynthesis) digital mammographic views obtained, with additional images as needed for full coverage. Current study was also evaluated with a Computer Aided Detection (CAD) system. DENSITY B. There are scattered areas of fibroglandular density. MAMMOGRAPHY FINDINGS Bilateral: No suspicious mass, asymmetry, microcalcification, or other abnormality seen. IMPRESSION: * No evidence of malignancy. RECOMMENDATIONS Bilateral * Annual screening mammography. OVERALL ASSESSMENT CATEGORY BI-RADS-1: Negative. The [employer] recommends annual screening mammography beginning at age 40 for women with average risk of breast cancer. ELECTRONICALLY SIGNED: Pj Reese M.D. on 05/28/2025 at 10:53:27 PM PT Interpreting Station ID: [id number]
== END ==
LOC: MAMMO 15:57
PROVIDERS: Family Provider Family Medicine; PCP Family Medicine; Referring Provider Family Medicine; Visit Provider Family Medicine
DX: Z12.31 Encounter for screening mammogram for malignant neoplasm of breast (principal); Z80.3 Family history of malignant neoplasm of breast
CPT/HCPCS: 77063; 77067

== ENCOUNTER → 2025-07-23 06:47 | Outpatient (CLI) | payer OTHER, SELFPAY ==
[2025-07-23 07:44] LABS: Add Manual Diff / Slide Review NO; Hematocrit 39.5 % (36-46); Hemoglobin 13.6 g/dL (12.0-16.0); Lymphocytes Absolute Auto 1500 /uL (1100-4500); Mean Corpuscular HGB Conc 34.5 % (30-36); Mean Corpuscular Hemoglobin 29.9 PG (26-34); Mean Corpuscular Volume 86.7 fL (80-100); Platelet Count 332 X10^3/uL (150-400)
[2025-07-23 08:30] LABS: Alanine Aminotransferase 16 IU/L (<35); Alkaline Phosphatase 51 U/L (38-126); Blood Urea Nitrogen 11 mg/dL (7-17); Calcium 9.2 mg/dL (8.4-10.2); Chloride 104 mmol/L (98-107); Cholesterol 215 mg/dL (140-199); Estimated Glomerular Filt Rate > 60 mL/min (>60); Glucose 85 mg/dL (70-99); HDL Cholesterol 89 mg/dL (40-60); HEMOLYSIS < 15 (0-50); Potassium 4.7 mmol/L (3.4-5.1); Sodium 137 mmol/L (137-145); Total Protein 7.1 g/dL (6.3-8.2); Triglycerides 151 mg/dL (35-150)
[2025-07-23 08:31] LABS: Albumin 4.2 g/dL (3.5-5.0); Albumin Globulin Ratio 1.4 (1.0-2.8); Carbon Dioxide 24 mmol/L (22-32); Globulin 2.9 g/dL (1.7-4.1)
[2025-07-23 08:57] LABS: TSH w/ Reflex to FT4 1.59 uIU/mL (0.47-4.68)
== END ==
PROVIDERS: Family Provider Family Medicine; PCP Family Medicine; Referring Provider Family Medicine; Visit Provider Family Medicine
DX: E78.2 Mixed hyperlipidemia (principal)
CPT/HCPCS: 36415; 80053; 80061; 84443; 85025